=== PATIENT | male | born 1965 | race Caucasian/White ===

== ENCOUNTER 2024-07-15 05:39 | Emergency (ER) | payer OTHER, SELFPAY ==
[2024-07-15] VITALS (7 sets, daily range): BP systolic 118–142; BP diastolic 74–79; PULSE 98–130; RESP 16–24; TEMP 36.6–37.2; O2SAT 92–98; BMI 20.9
--- NOTE | 2024-07-15 05:47 | XR_ITS ---
PROCEDURE INFORMATION: Exam: XR Chest Exam date and time: 07/15/2024 5:57 AM Age: 58 years old Clinical indication: Shortness of breath; Additional info: SOA TECHNIQUE: Imaging protocol: Radiologic exam of the chest. Views: 1 view. COMPARISON: No relevant prior studies available. FINDINGS: Lungs: Unremarkable. No consolidation. Pleural spaces: Unremarkable. No pleural effusion. No pneumothorax. Heart/Mediastinum: Unremarkable. No cardiomegaly. Bones/joints: Unremarkable. IMPRESSION: No acute findings.
--- NOTE | 2024-07-15 05:50 | HMH.EDGENADL ---
Discharge Plan Disposition Patient Disposition: Home, Self-Care Prescriptions Prescriptions: New prednisone 50 mg tablet 50 mg PO DAILY 5 Days Qty: 5 0RF azithromycin 250 mg tablet See Rx Instructions .ROUTE .COMPLEX Qty: 6 0RF Rx Instructions: For 250 mg dose pack: take 500 mg today (day 1), then 250 mg for 4 days (days 2-5) ipratropium-albuterol 0.5 mg-3 mg(2.5 mg base)/3 mL solution for nebulization 3 ml inhalation Q20M PRN (Reason: shortness of breath or wheezing) Qty: 90 0RF Rx Instructions: for 3 doses Referrals Follow up/Referrals: Provider,Referral, MD [Primary Care Provider] - See instructions Activity Restrictions/Add. Instructions Additional Instructions/Restrictions: At this time it was felt you are safe to be discharged home. If new or worsening symptoms please do not hesitate to return the emergency department. Please follow-up with your family doctor as soon as you are able. Clinical Impressions Clinical Impression: Acute exacerbation of chronic obstructive airways disease Print Language Print Language: Chilean Discharge ED Provider: Lamont Perez General Adult HPI <Lamont Perez MD - Last Filed: 07/15/24 06:50> General Chief complaint: Shortness of Breath/Dyspnea Stated complaint: short of breath Time Seen by Provider: 07/15/24 05:40 History of Present Illness HPI narrative: 58-year-old male with history of COPD on 5 L nasal cannula at baseline, history of heart failure with AICD placement, presents for worsening shortness of breath. He recently ran out of his nebs when his family was on vacation to [place]. He lives in [place] and gets all of his care there. He has had multiple recent issues with hospitalizations for sepsis. He feels like he is dehydrated, denies any new cough or fever or other infectious symptoms. He presents via EMS and received 1 DuoNeb and steroids en route. Reports he is feeling better after the DuoNeb. Denies any chest pain. Related Data Previous Rx's ?Medication ?Instructions ?Recorded azithromycin 250 mg tablet See Rx Instructions PO .COMPLEX 07/15/24 COPD exacerbation #6 tabs ipratropium 0.5 mg-albuterol 3 mg 3 ml inhalation Q20M PRN shortness 07/15/24 (2.5 mg base)/3 mL nebulization of breath or wheezing #90 mL soln prednisone 50 mg tablet 50 mg PO DAILY 5 days #5 tabs 07/15/24 Allergies Allergy/AdvReac Type Severity Reaction Status Date / Time No Known Allergies Allergy Verified 07/15/24 05:50 PFS <Lamont Perez MD - Last Filed: 07/15/24 06:50> [facility] Disclaimer: The information contained in this section may have been updated after the patient was seen, as this information can be updated by other users. Medical History (Updated 07/15/24 @ 07:49 by Seymour Lancaster MD) COPD (chronic obstructive pulmonary disease) Social History (Updated 07/15/24 @ 06:50 by Lamont Perez MD) Smoking Status: Former smoker alcohol intake: never current occupational status: retired Travel in the last 8 weeks: None Have you lived/traveled outside US in past 30 days?: No Contact w/someone who lives/traveled outside US past 30 days?: No Exposure to someone with infectious disease in past 14 days?: No Do you have a fever (greater than 100.4 F or 38 C)?: No Have you tested positive for COVID-19: No Exposed to someone with COVID-19 in past 14 days?: No Do you have a sore throat?: No Do you have a cough?: No Do you have any weakness?: No Do you have any diarrhea?: No Are you experiencing any unusual bleeding?: No Do you have any muscle aches/pain?: No Do you have any abdominal pain?: No Are you experiencing loss of taste or smell?: No <Lamont Perez MD - Last Filed: 07/15/24 06:50> ROS Obtained: Yes All systems reviewed & no additional complaints except as documented Physical Exam <Lamont Perez MD - Last Filed: 07/15/24 06:50> General General appearance: alert and in no apparent distress Head Head exam: atraumatic and normocephalic Eye Eye exam: Present normal appearance, PERRL and EOMI ENT ENT exam: Present normal oropharynx and normal external ear exam Neck Neck exam: Present normal inspection and full ROM Chest Chest inspection: Present normal inspection and symmetric chest wall rise; Absent tenderness Respiratory Respiratory exam: Present respiratory distress, wheezes (Faint) and accessory muscle use; Absent normal lung sounds bilaterally (Diminished bilaterally) Cardiovascular Cardiovascular exam: Present normal rhythm and tachycardia Abdominal Exam Abdominal exam: Present soft; Absent distention, tenderness or guarding Extremities Exam Extremities exam: Present normal inspection; Absent edema or joint swelling Back Exam Back exam: Present normal inspection; Absent tenderness Neurological Exam Neurological exam: Present alert and oriented X3; Absent motor sensory deficit Psychiatric Psychiatric exam: Present normal affect and normal mood Skin Skin exam: Present warm, dry and normal color Lymphatic Lymphatic Findings: no adenopathy Medical Decision Making <Lamont Perez MD - Last Filed: 07/15/24 06:50> Medical Records Medical records reviewed: Yes I reviewed the patient's medical records. Screening: Per USPSTF and CDC recommendations, given the prevalence of disease in our region, it is our hospital?s policy to screen for HIV and viral Hepatitis for all patients aged 18 and over and those with ongoing risk factors. Micheal Inquiry Pt receiving controlled substance: No Micheal was queried for this patient: No Vital Signs: 07/15/24 05:40 07/15/24 05:47 07/15/24 06:00 Temperature 97.8 F Temperature Source Oral Pulse Rate 130 H 117 H Pulse Rate [Right Radial] 125 H Respiratory Rate 21 16 20 Blood Pressure 128/78 127/74 Blood Pressure [Right Arm] 128/78 Blood Pressure Mean [Right Arm] 94 Blood Pressure Source [Right Arm] Automatic Cuff Blood Pressure Position [Right Arm] Supine 02 Sat by Pulse Oximetry 93 L 92 L 95 Oxygen Delivery Method Nasal Cannula Nasal Cannula Oxygen Flow Rate (LPM) 4 4 07/15/24 06:31 Temperature Temperature Source Pulse Rate Pulse Rate [Right Radial] Respiratory Rate 21 Blood Pressure 118/79 Blood Pressure [Right Arm] Blood Pressure Mean [Right Arm] Blood Pressure Source [Right Arm] Blood Pressure Position [Right Arm] 02 Sat by Pulse Oximetry Oxygen Delivery Method Oxygen Flow Rate (LPM) Lab Data Lab results reviewed: Yes I reviewed the patient's lab results. Lab Results 07/15/24 05:45: WBC 5.7, RBC 5.16, Hgb 17.1, Hct 53.0 H, MCV 102.7 H, MCH 33.1 H, MCHC 32.3, RDW 14.0, Plt Count 117 L, MPV 10.8 H, Neut % (Auto) 60.6, Lymph % (Auto) 16.4, Milam % (Auto) 15.2 H, Eos % (Auto) 7.0, Baso % (Auto) 0.5, Neut # (Auto) 3.5, Lymph # (Auto) 0.9, Milam # (Auto) 0.9, Eos # (Auto) 0.4, Baso # (Auto) 0.0, PT 10.5, INR 0.93, D-Dimer 0.78 H, Sodium 142, Potassium 4.4, Chloride 101, Carbon Dioxide 35 H, Anion Gap 10.4, BUN 15, Creatinine 0.60 L, Estimated Creat Clear 135, Estimated GFR 139, Est GFR ( Amer) 168, Glucose 107 H, Calcium 9.5, Total Bilirubin 1.1, AST 38, ALT 33, Alkaline Phosphatase 60, Troponin I < 0.01, NT-Pro-B Natriuret Pep 167 H, Total Protein 7.2, Albumin 4.2, Globulin 3.0, Albumin/Globulin Ratio 1.4, Thyroxine (T4) 10.4 07/15/24 05:56: VBG pH 7.25 L, VBG pCO2 71.6 H, VBG pO2 30.5, VBG HCO3 30.8 H, VBG Total CO2 33.0 H, VBG O2 Saturation 55.5, VBG Base Excess 3.6 H, VBG Lactic Acid 2.0 07/15/24 05:45 07/15/24 05:45 Orders (Tests/Meds): ED MEDICATIONS Discontinued Medications Generic Name Dose Route Start Last Admin Trade Name Freq PRN Reason Stop Dose Admin Albuterol/Ipratropium 6 ml 07/15/24 06:09 07/15/24 07:35 Ipratropium/Albuterol 3 Ml Neb IH 07/15/24 06:10 6 ml ONCE ONE Administration Magnesium Sulfate 2 gm in 50 mls @ 150 mls/hr 07/15/24 06:07 07/15/24 06:11 Magnesium Sulfate 2gm/50ml Premix IV 07/15/24 06:26 150 mls/hr ONCE ONE Administration Sodium Chloride 1,000 mls @ 999 mls/hr 07/15/24 06:15 07/15/24 06:13 Sod Chlor 0.9% 1000ml Bag IV 07/15/24 07:15 999 mls/hr .Q1H1M KAYCEE Administration ORDERS Category Date Time Status CXR --portable [XR chest portable] Stat Exams 07/15/24 05:47 Completed BNP [NT Pro Brain Natriuretic Pep.] Stat Lab 07/15/24 05:45 Completed CBC w/Auto Diff [Complete Blood Count Auto Diff] Stat Lab 07/15/24 05:45 Completed CMP [Comprehensive Metabolic Panel] Stat Lab 07/15/24 05:45 Completed D-Dimer Stat Lab 07/15/24 05:45 Completed INR [Prothrombin Time INR] Stat Lab 07/15/24 05:45 Completed Lactate Venous Stat Lab 07/15/24 05:47 Ordered T4 (Thyroxine) Stat Lab 07/15/24 05:45 Completed Troponin I Q3H Lab 07/15/24 05:45 Completed Troponin I Q3H Lab 07/15/24 09:00 Ordered VBG [Venous Blood Gas] Stat RT 07/15/24 05:56 Completed ECG Data Tracing #1: I reviewed this ECG and interpreted as documented below: Sinus rhythm, tachycardia with ventricular rate of 118, no significant ST elevation or depression, normal intervals ECG initial impression date: 07/15/24 ECG initial impression time: 05:52 Medical Decision Narrative: 58-year-old male with history of COPD on 5 L nasal cannula baseline, heart failure presents for worsening shortness of breath. History was obtained via interactive discussion with patient, EMS. On arrival, patient is afebrile, tachycardic to 130 in sinus rhythm, normotensive,, moving all extremities spontaneously. Full physical exam performed and significant for diminished breath sounds bilaterally with faint wheezing, no significant lower extremity edema Differential includes but is not limited to COPD exacerbation, pneumonia, pneumothorax, ACS, PE, heart failure. Patient was given 2 additional DuoNebs and IV magnesium for symptomatic management and correction of underlying abnormalities. Patient received a DuoNeb and 125 Solu-Medrol en route with EMS. Workup initiated including CBC CMP troponin D-dimer BNP chest x-ray VBG TSH T4. On re-evaluation, patient reports some symptomatic improved Laboratory workup independently interpreted by me and significant for no significant leukocytosis, mild thrombocytopenia, respiratory acidosis on VBG, no significant renal dysfunction. Imaging independently interpreted by me and significant for no significant pulmonary edema or focal opacity. See radiology read for full review of final results. EKG independently interpreted by me and significant for sinus tachycardia. Given patient history, exam and workup, patient's presentation most likely represents acute COPD exacerbation. At this time care was sent off to oncoming physician pending breathing treatments, further laboratory evaluation and symptomatic improvement.. <Seymour Lancaster MD - Last Filed: 07/15/24 07:50> Vital Signs: 07/15/24 05:40 07/15/24 05:47 07/15/24 06:00 Temperature 97.8 F Temperature Source Oral Pulse Rate 130 H 117 H Pulse Rate [Right Radial] 125 H Respiratory Rate 21 16 20 Blood Pressure 128/78 127/74 Blood Pressure [Right Arm] 128/78 Blood Pressure Mean [Right Arm] 94 Blood Pressure Source [Right Arm] Automatic Cuff Blood Pressure Position [Right Arm] Supine 02 Sat by Pulse Oximetry 93 L 92 L 95 Oxygen Delivery Method Nasal Cannula Nasal Cannula Oxygen Flow Rate (LPM) 4 4 07/15/24 06:31 Temperature Temperature Source Pulse Rate Pulse Rate [Right Radial] Respiratory Rate 21 Blood Pressure 118/79 Blood Pressure [Right Arm] Blood Pressure Mean [Right Arm] Blood Pressure Source [Right Arm] Blood Pressure Position [Right Arm] 02 Sat by Pulse Oximetry Oxygen Delivery Method Oxygen Flow Rate (LPM) Lab Data Lab Results 07/15/24 05:45: WBC 5.7, RBC 5.16, Hgb 17.1, Hct 53.0 H, MCV 102.7 H, MCH 33.1 H, MCHC 32.3, RDW 14.0, Plt Count 117 L, MPV 10.8 H, Neut % (Auto) 60.6, Lymph % (Auto) 16.4, Milam % (Auto) 15.2 H, Eos % (Auto) 7.0, Baso % (Auto) 0.5, Neut # (Auto) 3.5, Lymph # (Auto) 0.9, Milam # (Auto) 0.9, Eos # (Auto) 0.4, Baso # (Auto) 0.0, PT 10.5, INR 0.93, D-Dimer 0.78 H, Sodium 142, Potassium 4.4, Chloride 101, Carbon Dioxide 35 H, Anion Gap 10.4, BUN 15, Creatinine 0.60 L, Estimated Creat Clear 135, Estimated GFR 139, Est GFR ( Amer) 168, Glucose 107 H, Calcium 9.5, Total Bilirubin 1.1, AST 38, ALT 33, Alkaline Phosphatase 60, Troponin I < 0.01, NT-Pro-B Natriuret Pep 167 H, Total Protein 7.2, Albumin 4.2, Globulin 3.0, Albumin/Globulin Ratio 1.4, Thyroxine (T4) 10.4 07/15/24 05:56: VBG pH 7.25 L, VBG pCO2 71.6 H, VBG pO2 30.5, VBG HCO3 30.8 H, VBG Total CO2 33.0 H, VBG O2 Saturation 55.5, VBG Base Excess 3.6 H, VBG Lactic Acid 2.0 Orders (Tests/Meds): ED MEDICATIONS Discontinued Medications Generic Name Dose Route Start Last Admin Trade Name Freq PRN Reason Stop Dose Admin Albuterol/Ipratropium 6 ml 07/15/24 06:09 07/15/24 07:35 Ipratropium/Albuterol 3 Ml Neb IH 07/15/24 06:10 6 ml ONCE ONE Administration Magnesium Sulfate 2 gm in 50 mls @ 150 mls/hr 07/15/24 06:07 07/15/24 06:11 Magnesium Sulfate 2gm/50ml Premix IV 07/15/24 06:26 150 mls/hr ONCE ONE Administration Sodium Chloride 1,000 mls @ 999 mls/hr 07/15/24 06:15 07/15/24 06:13 Sod Chlor 0.9% 1000ml Bag IV 07/15/24 07:15 999 mls/hr .Q1H1M KAYCEE Administration ORDERS Category Date Time Status CXR --portable [XR chest portable] Stat Exams 07/15/24 05:47 Completed BNP [NT Pro Brain Natriuretic Pep.] Stat Lab 07/15/24 05:45 Completed CBC w/Auto Diff [Complete Blood Count Auto Diff] Stat Lab 07/15/24 05:45 Completed CMP [Comprehensive Metabolic Panel] Stat Lab 07/15/24 05:45 Completed D-Dimer Stat Lab 07/15/24 05:45 Completed INR [Prothrombin Time INR] Stat Lab 07/15/24 05:45 Completed Lactate Venous Stat Lab 07/15/24 05:47 Ordered T4 (Thyroxine) Stat Lab 07/15/24 05:45 Completed Troponin I Q3H Lab 07/15/24 05:45 Completed Troponin I Q3H Lab 07/15/24 09:00 Ordered VBG [Venous Blood Gas] Stat RT 07/15/24 05:56 Completed Medical Decision Narrative: 58-year-old male with history of COPD on 5 L nasal cannula baseline, heart failure presents for worsening shortness of breath. History was obtained via interactive discussion with patient, EMS. On arrival, patient is afebrile, tachycardic to 130 in sinus rhythm, normotensive,, moving all extremities spontaneously. Full physical exam performed and significant for diminished breath sounds bilaterally with faint wheezing, no significant lower extremity edema Differential includes but is not limited to COPD exacerbation, pneumonia, pneumothorax, ACS, PE, heart failure. Patient was given 2 additional DuoNebs and IV magnesium for symptomatic management and correction of underlying abnormalities. Patient received a DuoNeb and 125 Solu-Medrol en route with EMS. Workup initiated including CBC CMP troponin D-dimer BNP chest x-ray VBG TSH T4. On re-evaluation, patient reports some symptomatic improved Laboratory workup independently interpreted by me and significant for no significant leukocytosis, mild thrombocytopenia, respiratory acidosis on VBG, no significant renal dysfunction. Imaging independently interpreted by me and significant for no significant pulmonary edema or focal opacity. See radiology read for full review of final results. EKG independently interpreted by me and significant for sinus tachycardia. Given patient history, exam and workup, patient's presentation most likely represents acute COPD exacerbation. At this time care was sent off to oncoming physician pending breathing treatments, further laboratory evaluation and symptomatic improvement.. Seymour Lancaster: Upon assumption of care patient was hemodynamically stable. Workup reviewed by me, hematologic labs are remarkable for no significant leukocytosis no actionable anemia no YUDY or critical electrolyte abnormality. Patient does have a slight hypercarbic acidosis which was obtained prior to his breathing treatments which I would expect based on his clinical picture. D-dimer 0.78 pulmonary embolism is excluded per years criteria initial troponin undetectably low and patient does not have chest pain. Chest x-ray informally interpreted by me, no dense lobar opacities or large pneumothorax. Formal read shows no acute pathology. Upon repeat evaluation patient had no significant tachypnea, good air movement, no wheezing to auscultation and reported significant improvement in his symptoms and felt much better was resting comfortably in bed. Given this even though patient is at high risk for deterioration I do think he is appropriate for outpatient management at this time and he was given multiple return precautions and verbalized understanding will be discharged with a course of DuoNebs, steroids, azithromycin. Procedures <Lamont Perez MD - Last Filed: 07/15/24 06:50> Risk/Benefits of Procedure(s) Were Explained: Yes Critical Care <Lamont Perez MD - Last Filed: 07/15/24 06:50> Critical Care Time Critical Care Time: Yes Attestation: On , the high probability of a clinically significant, sudden or life threatening deterioration of the following system(s) respiratory required my full and direct attention, intervention and personal management. The time I documented below is in addition to time spent performing reported procedures but includes the following listed in this critical care notation. Total Time Total Critical Care Time: 40
--- NOTE | 2024-07-15 05:52 | ECG_ITS ---
APPROVED REPORT Exam: Resting ECG HR:118 bpm ECG Measurements Heart Rate 118 AXES GA 132 P 86 QRSd 96 QRS 94 QT 312 T 73 QTc 382 Conclusion SINUS TACHYCARDIA BORDERLINE RIGHT AXIS DEVIATION [QRS AXIS > 90] ABNORMAL RHYTHM ECG UNCONFIRMED REPORT Electronically signed by : MAC TELLES, 07/18/2024 03:39:39
[2024-07-15 05:58] LABS: VBG Base Excess 3.6 mmol/L (-2.4-2.3); VBG HCO3 30.8 mmol/L (23-30); VBG Oxygen Saturation 55.5 % (50-70); VBG PCO2 71.6 mmol/L (35-51); VBG PH 7.25 mmol/L (7.31-7.41); VBG PO2 30.5 mmol/L (28-40)
[2024-07-15 06:00] LABS: Albumin Level 4.2 g/dl (3.5-5.0); Chloride 101 mmol/L (98-107); Potassium 4.4 mmoL/L (3.5-5.1); Sodium 142 mmol/L (136-145)
[2024-07-15 06:02] LABS: Blood Urea Nitrogen 15 mg/dl (9-20); Creatinine Clearance Estimated 135 mL/min (50-200); Estimated Glomerular Filt Rate 139 ml/min (>60); GFR (African American) 168 ML/MIN (>60)
[2024-07-15 06:03] LABS: Alanine Aminotransferase 33 U/L (12-78); Albumin/Globulin Ratio 1.4 (1.1-1.8); Alkaline Phosphatase 60 U/L (38-126); Anion Gap 10.4 mEq/L (5-15); Aspartate Amino Transferase 38 U/L (17-59); Bilirubin,Total 1.1 mg/dl (0.2-1.3); Calcium 9.5 mg/dl (8.4-10.2); Carbon Dioxide 35 mmol/L (22.0-30.0); Glucose 107 mg/dl (74-100); Total Protein,Serum 7.2 g/dl (6.3-8.2)
[2024-07-15 06:08] LABS: Basophils % 0.5 % (0.1-2.0); Eosinophils # 0.4 K/mm3 (0.0-0.4); Hemoglobin 17.1 g/dL (14.1-18.0); Lymphocytes # 0.9 K/mm3 (0.7-4.5); Lymphocytes % 16.4 % (10-50); Mean Corpuscular HGB Conc 32.3 g/dL (31.8-35.4); Mean Corpuscular Hemoglobin 33.1 pg (27.0-31.2); Mean Corpuscular Volume 102.7 fl (80-94); Mean Platelet Volume 10.8 fl (7.4-10.4); Monocytes # 0.9 K/mm3 (0.1-1.0); Monocytes % 15.2 % (1.7-9.3); Neutrophils # 3.5 K/mm3 (1.8-7.8); Neutrophils % 60.6 % (37.0-80.0); Nucleated Red Blood Cells # 0 10^3/uL; Nucleated Red Blood Cells % 0 %; Platelet Count 117 K/mm3 (142-424); Red Blood Count 5.16 M/mm3 (4.60-6.20); Red Cell Distribution Width-SD 53.7 fL; White Blood Count 5.7 K/mm3 (4.8-10.8)
[2024-07-15] MEDS: MAGNESIUM SULFATE IN WATER 2 GM/50 ML PIGGYBACK IV (06:11)
[2024-07-15] MEDS: 0.9 % SODIUM CHLORIDE 1000ML 1,000 ML 999 ML IV (06:13)
[2024-07-15 06:16] LABS: INR 0.93 (0.9-1.1); Prothrombin Time 10.5 seconds (10.1-12.5)
[2024-07-15 06:20] LABS: T4 (Thyroxine) 10.4 ug/dl (5.53-11.0)
[2024-07-15 06:29] LABS: NT Pro Brain Natriuretic Pep. 167 pg/mL (0-125)
[2024-07-15 06:44] LABS: Troponin I < 0.01 ng/ml (0.00-0.034)
[2024-07-15 06:48] LABS: D-Dimer 0.78 ug/mL (0.0-0.5)
--- NOTE | 2024-07-15 07:02 | PC.NURSE ---
pt is resting in bed. i gave him a warm blanket. he reports feeling much better. fluids infusing. no complaints
[2024-07-15] MEDS: IPRATROPIUM/ALBUTEROL 3 ML NEB 6 ML IH (07:35)
--- NOTE | 2024-07-15 08:00 | PC.NURSE ---
spoke with pt. he reports feeling increasingly anxious and short of breath. saturation is stable. spoke with MD who went to bedside to see pt. continuous neb ordered. respiratory notified.
--- NOTE | 2024-07-15 08:00 | PC.NURSE ---
respiratory notified of continuous neb
[2024-07-15] MEDS: ALBUTEROL 0.083% 2.5 MG/3 ML NEB 20 MG IH (08:17)
== END 2024-07-15 10:47 | disposition home or self-care (01) ==
PROVIDERS: Emergency Medicine; Emergency Provider Emergency Medicine
DX: J44.1 Chronic obstructive pulmonary disease with (acute) exacerbation (principal); R00.0 Tachycardia, unspecified
CPT/HCPCS: 71045; 80053; 82803; 83880; 84436; 84484; 85025; 85378; 85610; 93005; 96361; 96365; 99285; J3475; J7030